=== PATIENT | male | born 2000 | race Two or more races ===

== ENCOUNTER 2022-06-27 15:12 | Emergency (ER) | payer OTHER ==
[~2022-06-27] VITALS: Ht 175.3 cm; Wt 95.3 kg
[2022-06-27 15:19] VITALS: BP 150/99
--- NOTE | 2022-06-27 15:30 | NUR ---
22/M WALKED IN C/O RIGHT KNEE PAIN S/P TWISTING X 4 DAYS. DENIES FALL OR INJURY. DENIES PAIN WHEN BEARING WEIGHT BUT PAIN WHEN TWISTING. PMH: DENIES
[2022-06-27] MEDS ORDERED: IBUP-2213 PO (16:56)
[2022-06-27 18:06] VITALS: BP 150/99
--- NOTE | 2022-06-27 18:06 | NUR ---
Patient discharged with v/s stable. Written and verbal after care instructions given and explained. Patient verbalized understanding. Ambulatory with steady gait. All questions addressed prior to discharge. Advised to follow up with PMD.
== END 2022-06-27 18:06 | disposition home or self-care (01) ==
LOC: MED 15:12
DX: S83.91XA Sprain of unspecified site of right knee, initial encounter (principal); R03.0 Elevated blood-pressure reading, without diagnosis of hypertension; Z79.1 Long term (current) use of non-steroidal anti-inflammatories (NSAID); X50.1XXA Overexertion from prolonged static or awkward postures, initial encounter; Y93.89 Activity, other specified; Y92.89 Other specified places as the place of occurrence of the external cause; Y99.8 Other external cause status
CPT/HCPCS: 73560; 99283; Q0092